=== PATIENT | female | born 1965 | race Caucasian/White ===

== ENCOUNTER 2016-11-07 19:10 | Emergency (ER) | payer BC ==
[2016-11-07] MEDS ORDERED: PREDNISONE 20 MG TAB PO ONE (19:41)
--- NOTE | 2016-11-07 19:44 | Emergency Department Record ---
History of Present Illness - General Chief complaint: Pain Stated complaint: LEFT SHOULDER/NECK PAIN -INJURY Time Seen by Provider: 11/07/16 19:38 Source: Patient Mode of Arrival: Ambulatory Limitations: No limitations - History of Present Illness Initial comments: 51 yo female presents to ED with continued pain and spasm of the left paracervical muscles extending into the shoulder and left upper arm. Patient reports picking up a large horse saddle 5 days ago that resulted on "spasm" to the affected area, denies direct injury or trauma to the area. 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 Patient is currently taking Soma, [place], and Neurontin at home for her symptoms as prescribed by her PCP. MD Complaint: Other Onset/Timin -: Days(s) Location: Left, Shoulder -: Yes Myalgia Severity scale (1-10): 9 Quality: Aching Consistency: Constant Improves with: Medication Worsens with: Other (movement) Associated Symptoms: Denies other symptoms - Related Data Home Medications Medication Instructions Recorded Confirmed Last Taken Carisoprodol #30 11/05/16 Unknown Gabapentin #180 11/05/16 Unknown Hydrocodone/Acetaminophen #60 11/05/16 Unknown [Hydrocodon-Acetaminophen 5-325] Venlafaxine HCl [Venlafaxine Hcl #30 11/05/16 Unknown Er] Previous Rx's Medication Instructions Recorded Prednisone [Prednisone 20Mg] 20 mg PO TID #12 tab 11/07/16 Allergies Allergy/AdvReac Type Severity Reaction Status Date / Time minocycline HCl Allergy ANAPHYLAXIS Unverified 11/05/16 17:12 [From Terri] Travel Screening - Travel/Exposure Within Last 30 Days Have you traveled within the last 30 days?: No Review of Systems Constitutional: Denies: Chills, Fever, Malaise, Night sweats Eyes: Denies: Eye discharge, Eye pain, Photophobia ENT: Denies: Congestion, Ear pain, Epistaxis Respiratory: Denies: Cough, Dyspnea Cardiovascular: Denies: Chest pain, Dyspnea on exertion Endocrine: Denies: Fatigue, Heat or cold intolerance Gastrointestinal: Denies: Abdominal pain, Nausea, Vomiting Genitourinary: Denies: Incontinence, Retention Musculoskeletal: Reports: Arthralgia, Neck pain. Denies: Back pain, Gout, Joint swelling Skin: Denies: Bruising, Change in color Neurological: Denies: Abnormal gait, Confusion, Headache, Seizure Psychiatric: Denies: Anxiety Hematological/Lymphatic: Denies: Anemia, Blood Clots Past Medical History - SOCIAL HISTORY Smoking Status: Light tobacco smoker (<10/day) Alcohol Use: None Drug Use: None - RESPIRATORY Hx Respiratory Disorders: No - CARDIOVASCULAR Hx Cardio Disorders: No - NEURO Hx Neuro Disorders: No - GI Hx GI Disorders: No - Hx Genitourinary Disorders: No - ENDOCRINE Hx Endocrine Disorders: No - MUSCULOSKELETAL Hx Musculoskeletal Disorders: Yes Hx Back Injury: Yes - PSYCH Hx Psych Problems: No - HEMATOLOGY/ONCOLOGY Hx Hematology/Oncology Disorders: No Family Medical History Any Significant Family History?: No Physical Exam - General General Appearance: Alert, Oriented x3, Cooperative, Mild distress, Other (hand held above her head for comfort, easily lowers the extremity for examination) Limitations: No limitations - Head Head exam: Atraumatic, Normocephalic, Normal inspection Head exam detail: negative: Abrasion, Contusion, Martinez's sign, General tenderness, Hematoma, Laceration - Eye Eye exam: Normal appearance. negative: Conjunctival injection, Periorbital swelling, Periorbital tenderness, Scleral icterus - ENT Ear exam: negative: Auricular hematoma, Auricular trauma Nasal Exam: negative: Active bleeding, Discharge, Dried blood, Foreign body Mouth exam: negative: Drooling, Laceration, Muffled voice, Tongue elevation - Neck Neck exam: Normal inspection, Tenderness, Other (Moderate amount of spasm to the left paracervical muscles on examination). negative: Meningismus - Respiratory Respiratory exam: Normal lung sounds bilaterally. negative: Respiratory distress, Rhonchi, Stridor, Wheezes - Cardiovascular Cardiovascular Exam: Regular rate, Normal rhythm, Normal heart sounds Peripheral Pulses: 3+: Radial (L) (normal) - GI/Abdominal GI/Abdominal exam: Soft. negative: Rebound, Rigid, Tenderness - Rectal Rectal exam: Deferred - exam: Deferred - Extremities Extremities exam: Normal inspection, Full ROM. negative: Calf tenderness, Pedal edema, Tenderness - Back Back exam: Denies: CVA tenderness (R), CVA tenderness (L) - Neurological Neurological exam: Alert, Oriented X3. negative: Motor sensory deficit - Psychiatric Psychiatric exam: Normal affect, Normal mood - Skin Skin exam: Normal color. 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 Radiographs are not felt to be of benefit as symptoms are non-traumatic in nature. Given that the patient is already taking Soma, [place], and Neurontin for her pain symptoms, will add prednisone for treatment of inflammation in the surrounding area with instruction for the patient to follow-up with her PCP in 1 -3 days for possible MRI to evaluate for cervical radiculopathy if symptoms persist. Patient is well appearing on examination and appears stable for discharge at this time. Disposition Disposition: Discharge Clinical Impression: Spasm of cervical paraspinous muscle Disposition: Home, Self-Care Condition: (2) Stable Instructions: Muscle Spasm (ED) Additional Instructions: Return to ED if your symptoms persist of if you have any concerns. Prednisone as directed in addition to your other current medication regimen. Follow-up with Dr. Aguiar in 1-3 days as directed. Prescriptions: Prednisone [Prednisone 20Mg] 20 mg PO TID #12 tab Forms: Patient Portal Access Time of Disposition: 19:52
== END 2016-11-07 20:02 | disposition home or self-care (01) ==
LOC: ER 19:10
DX: M62.830 Muscle spasm of back (principal); M25.512 Pain in left shoulder
CPT/HCPCS: 99282; J7512

== ENCOUNTER 2019-05-01 10:14 | Emergency (ER) | payer BC ==
[2019-05-01] MEDS ORDERED: Diph,Pert(Acell),Tet Vac 0.5 ML SYR IM ONE (10:18)
--- NOTE | 2019-05-01 10:23 | Emergency Department Record ---
History of Present Illness - General Chief complaint: Extremity Problem Stated complaint: FINGER INJURY Time Seen by Provider: 05/01/19 10:16 Source: Patient Mode of Arrival: Ambulatory Limitations: No limitations - History of Present Illness Initial comments: 53 yo female presents with injury to her index and middle finger on the right. She was moving a pig and it pushed her into a desk. She injured the distal index and middle fingers. Nails are intact. She has full ROM. Mild swelling. She is unsure of the date of her last tetanus. She is right handed. MD Complaint: Joint pain -: Days(s) (1) Location: Right History of Same: No -: Yes Arthralgia Radiation: Distal Quality: Aching Consistency: Constant Improves with: Immobilization Worsens with: Palpation Associated Symptoms: Denies other symptoms - Related Data Allergies Allergy/AdvReac Type Severity Reaction Status Date / Time minocycline HCl Allergy ANAPHYLAXIS Verified 05/01/19 10:20 [From Minocin] Review of Systems Constitutional: Denies: Chills, Fever, Malaise, Weakness Eyes: Denies: Eye discharge, Vision change ENT: Denies: Congestion, Throat pain Respiratory: Denies: Cough, Dyspnea Cardiovascular: Denies: Chest pain, Palpitations, Syncope Endocrine: Denies: Fatigue, Polydipsia, Polyuria Gastrointestinal: Denies: Abdominal pain, Diarrhea, Nausea, Vomiting Genitourinary: Denies: Dysuria, Urgency Musculoskeletal: Reports: As per HPI, Arthralgia, Joint swelling Skin: Reports: Other. Denies: Bruising Neurological: Denies: Headache, Numbness, Weakness Psychiatric: Denies: Anxiety Hematological/Lymphatic: Denies: Easy bleeding, Easy bruising Past Medical History - SOCIAL HISTORY Smoking Status: Light tobacco smoker (<10/day) Drug Use: None - RESPIRATORY Hx Respiratory Disorders: No - CARDIOVASCULAR Hx Cardio Disorders: No - NEURO Hx Neuro Disorders: No - GI Hx GI Disorders: No - Hx Genitourinary Disorders: No - ENDOCRINE Hx Endocrine Disorders: No - MUSCULOSKELETAL Hx Musculoskeletal Disorders: Yes Hx Back Injury: Yes - PSYCH Hx Psych Problems: No - HEMATOLOGY/ONCOLOGY Hx Hematology/Oncology Disorders: No Physical Exam - General General Appearance: Alert, Oriented x3, Cooperative, No acute distress Limitations: No limitations - Head Head exam: Atraumatic, Normal inspection - Eye Eye exam: Normal appearance, PERRL. negative: Conjunctival injection, Scleral icterus - ENT ENT exam: Normal exam Ear exam: Normal external inspection Nasal Exam: Normal inspection Mouth exam: Normal external inspection - Neck Neck exam: Normal inspection - Respiratory Respiratory exam: negative: Respiratory distress - Cardiovascular Peripheral Pulses: 2+: Radial (R) - Extremities Extremities exam: Full ROM, Joint swelling, Normal capillary refill, Tenderness. negative: Normal inspection Image of Hand: 1 - mild swelling distal index and middle fingers, 10% subungual hematoma both fingers, full ROM with flexion and extension both fingers, intact nails both fingers. The remaining fingers non tender, uninjured - Neurological Neurological exam: Alert, Oriented X3. negative: Motor sensory deficit - Psychiatric Psychiatric exam: Normal affect, Normal mood - Skin Skin exam: Abrasion Course - Reevaluation(s) Reevaluation #1: 05/01/19 10:24 She is up to date on tetanus - 201405/01/19 11:12 The final radiology report was reviewed. No acute abnormality was noted. Disposition Disposition: Discharge Clinical Impression: Finger contusion Qualifiers: Encounter type: initial encounter Finger: unspecified finger Damage to nail status: without damage Qualified Code(s): S60.00XA - Contusion of unspecified finger without damage to nail, initial encounter Subungual hematoma of digit of hand Qualifiers: Encounter type: initial encounter Qualified Code(s): S60.10XA - Contusion of unspecified finger with damage to nail, initial encounter Disposition: Home, Self-Care Condition: (1) Good Instructions: Jammed Finger (ED) Additional Instructions: Return or see you doctor if you have any finger pain that last more that 1-2 weeks Tylenol or Motrin for discomfort Your last tetanus vaccination was in 2014. You will be due in 2024 unless you have an injury that was be a risk for tetanus Forms: Patient Portal Access Time of Disposition: 10:58 Quality - Quality Measures Quality Measures: N/A - Blood Pressure Screening Does Patient Have Any of the Following: No Blood Pressure Classification: Hypertensive Reading Systolic Measurement: 161 Diastolic Measurement: 103 Screening for High Blood Pressure: < Pre-Hypertensive BP, F/U Documented > [G8950] Pre-Hypertensive Follow-up Interventions: Referral to alternative/primary care provider.
--- NOTE | 2019-05-01 11:07 | RADIOLOGY REPORT ---
EXAMINATION: Right Hand, Minimum Three Views EXAM DATE: 05/01/2019 10:48 AM TECHNIQUE: PA, lateral, and oblique INDICATION: index, middle finger crushed against desk by pig COMPARISON: None ENCOUNTER: Initial FINDINGS: There is no bone or joint abnormality. IMPRESSION: Negative, follow-up MRI if symptoms persist Dictated by: Fan Aleman MD on 05/01/2019 11:04 AM. .
== END 2019-05-01 11:17 | disposition home or self-care (01) ==
LOC: ER 10:14
DX: S60.021A Contusion of right index finger without damage to nail, initial encounter (principal); S60.031A Contusion of right middle finger without damage to nail, initial encounter; W55.42XA Struck by pig, initial encounter; Y93.K3 Activity, grooming and shearing an animal; F17.210 Nicotine dependence, cigarettes, uncomplicated
CPT/HCPCS: 99283